=== PATIENT | female | born 1955 | race Caucasian/White ===

== ENCOUNTER 2022-05-27 23:10 | Emergency (ER) | payer MEDICAID ==
[~2022-05-27] VITALS: Ht 152.4 cm; Wt 69.7 kg
[2022-05-27 23:17] VITALS: BP 186/59
[2022-05-28] MEDS ORDERED: ONDANSETRON HCL 4MG/2ML INJ IV STA (05:11)
[2022-05-28] MEDS ORDERED: FAMOTIDINE 20MG/2ML VIAL IV STA (05:11)
[2022-05-28] MEDS ORDERED: SODIUM CHLORIDE 0.9% 1,000 ML IV ONE (05:15)
[2022-05-28 06:01] LABS: BASOPHILS % 1.3 % (0.0-2.0); EOSINOPHILS % 0.7 % (0.0-5.0); HEMOGLOBIN. 12.9 g/dL (12.0-16.0); LYMPHOCYTES % 31.7 % (20.0-50.0); MEAN CORPUSCULAR HEMOGLOBIN 30.9 pg (28.0-32.0); MEAN CORPUSCULAR VOLUME 91.1 fL (81.0-99.0); MEAN PLATELET VOLUME 7.2 fl (7.4-10.4); MONOCYTES % 6.3 % (2.0-8.0); PLATELET 310 x1000/uL (130-400); RED BLOOD CELL COUNT 4.17 mill/uL (4.2-5.4); RED CELL DISTRIBUTION WIDTH 13.3 % (11.6-14.6)
[2022-05-28 06:05] LABS: CHLORIDE 105 mEq/L (98-107)
[2022-05-28 06:13] LABS: CLARITY URINE CLEAR (CLEAR); COLOR URINE YELLOW (YELLOW); KETONES URINE NEGATIVE (NEGATIVE); LEUKOCYTE ESTERASE URINE 2+ (NEGATIVE); NITRITE URINE NEGATIVE (NEGATIVE); OCCULT BLOOD URINE NEGATIVE (NEGATIVE); PH URINE 6.5 (4.5-8.0); PROTEIN URINE NEGATIVE (NEGATIVE); SPECIFIC GRAVITY URINE 1.005 (1.005-1.030); UROBILINOGEN URINE 0.2 E.U./dL (0.2-1.0)
[2022-05-28 06:16] LABS: ETHANOL BLOOD < 10 mg/dL
[2022-05-28 07:02] LABS: *AMPHETAMINES SCREEN URINE NEGATIVE (NEGATIVE); *BARBITURATES SCREEN URINE NEGATIVE (NEGATIVE); *BENZODIAZEPINES SCREEN URINE NEGATIVE (NEGATIVE); *COCAINE SCREEN URINE NEGATIVE (NEGATIVE); CANNABINOID URINE SCREEN NEGATIVE (NEGATIVE); METHADONE URINE SCREEN NEGATIVE (NEGATIVE); OPIATES URINE SCREEN NEGATIVE (NEGATIVE); PHENCYCLIDINE URINE SCREEN NEGATIVE (NEGATIVE)
[2022-05-28] MEDS ORDERED: METRONIDAZOLE 500MG TABLET PO ONE (08:00)
[2022-05-28] MEDS ORDERED: LEVOFLOXACIN 500MG TABLET PO ONE (08:00)
[2022-05-28] MEDS ORDERED: CIPR-263 MT (09:54)
[2022-05-28] MEDS ORDERED: METR-167 MT (09:54)
[2022-05-28] MEDS ORDERED: ONDA4TAB11 PO (09:54)
[2022-05-28] MEDS ORDERED: OMEP20CA14 MT (09:54)
== END 2022-05-28 11:15 | disposition home or self-care (01) ==
LOC: ER 23:21
DX: K80.50 Calculus of bile duct without cholangitis or cholecystitis without obstruction (principal); R10.9 Unspecified abdominal pain; R11.2 Nausea with vomiting, unspecified; E11.9 Type 2 diabetes mellitus without complications; I10 Essential (primary) hypertension; Z79.899 Other long term (current) drug therapy; Z98.890 Other specified postprocedural states
CPT/HCPCS: 36415; 71045; 76705; 80053; 80305; 80320; 81003; 83690; 84484; 85025; 93005; 96361; 96374; 96375; 99285; J2405; J3490; J7030; Z7610; G0480

== ENCOUNTER 2023-11-09 09:20 | Emergency (ER) | payer SELFPAY ==
[~2023-11-09] VITALS: Ht 157.5 cm; Wt 70.0 kg
[~2023-11-09 09:20] MED LIST: CIPR-263 MT; METR-167 MT; OMEP20CA14 MT; ONDA4TAB11 PO
[2023-11-09 09:33] VITALS: O2SAT 96
[2023-11-09 10:07] LABS: BASOPHILS % 0.7 % (0.0-2.0); EOSINOPHILS % 5.1 % (0.0-5.0); HEMATOCRIT. 42.5 % (36.0-48.0); HEMOGLOBIN. 14.5 g/dL (12.0-16.0); LYMPHOCYTES % 22.1 % (20.0-50.0); MEAN CORPUSCULAR HEMOGLOBIN 30.6 pg (28.0-32.0); MEAN CORPUSCULAR HGB CONC 34.2 g/dL (31.0-37.0); MEAN CORPUSCULAR VOLUME 89.4 fL (81.0-99.0); MEAN PLATELET VOLUME 6.8 fl (7.4-10.4); MONOCYTES % 3.6 % (2.0-8.0); NEUTROPHILS % 68.5 % (40.0-76.0); PLATELET 302 x1000/uL (130-400); RED BLOOD CELL COUNT 4.76 mill/uL (4.2-5.4); RED CELL DISTRIBUTION WIDTH 13.7 % (11.6-14.6); WHITE BLOOD COUNT 7.2 x1000/uL (4.5-11.0)
[2023-11-09 10:20] LABS: CHLORIDE 105 mEq/L (98-107); POTASSIUM 3.9 mEq/L (3.5-5.1); SODIUM 137 mEq/L (136-145)
[2023-11-09 10:21] LABS: CALCIUM 9.5 mg/dL (8.7-10.4); CARBON DIOXIDE 23 mEq/L (21-32)
[2023-11-09 10:26] LABS: CREATININE 0.6 mg/dL (0.6-1.0); GLUCOSE 211 mg/dL (70-105); UREA NITROGEN BLOOD 9 mg/dL (9-23)
[2023-11-09 10:28] LABS: ALANINE AMINOTRANSFERASE 25 IU/L (10-49); ALBUMIN 4.5 g/dL (3.2-4.8); ASPARTATE AMINOTRANSFERASE 25 IU/L (<34); BILIRUBIN DIRECT 0.2 mg/dL (<=3.0); BILIRUBIN TOTAL 0.6 mg/dL (0.1-1.0)
[2023-11-09 10:29] LABS: PROTEIN TOTAL 8.1 g/dL (6.0-8.3)
[2023-11-09 10:40] LABS: TROPONIN I HIGH SENSITIVITY < 4 ng/L (3.0-34)
[2023-11-09 11:20] LABS: CLARITY URINE CLEAR (CLEAR); COLOR URINE YELLOW (YELLOW); GLUCOSE URINE 2+ (NEGATIVE); KETONES URINE NEGATIVE (NEGATIVE); LEUKOCYTE ESTERASE URINE NEGATIVE (NEGATIVE); NITRITE URINE NEGATIVE (NEGATIVE); OCCULT BLOOD URINE NEGATIVE (NEGATIVE); PH URINE 5.5 (4.5-8.0); PROTEIN URINE NEGATIVE (NEGATIVE); SPECIFIC GRAVITY URINE 1.013 (1.005-1.030); UROBILINOGEN URINE 0.2 E.U./dL (0.2-1.0)
[2023-11-09 11:43] LABS: SQUAMOUS EPITHELIAL CELL URINE 1+ /lpf (RARE/1+)
[2023-11-09 11:44] LABS: MUCUS URINE TRACE /lpf (< = 2+); RBC URINE NONE SEEN /hpf (0-2); WBC URINE 0-2 /hpf (0-2)
[2023-11-09 11:45] LABS: BACTERIA URINE TRACE
[2023-11-09] MEDS ORDERED: FAMOTIDINE 20MG/2ML VIAL IV NR (13:45)
[2023-11-09] MEDS: ONDANSETRON 4MG ODT PO ONE (13:46)
[2023-11-09] MEDS: ACETAMINOPHEN 325MG TABLET PO ONE (13:46)
[2023-11-09] MEDS: ONDANSETRON 4MG ODT PO NR (13:54)
[2023-11-09] MEDS: FAMOTIDINE 20MG TABLET PO SCH (13:54)
[2023-11-09] MEDS: MAGNESIUM/ALUMINUM HYDROXIDE/SIMETHICONE 30ML UDC PO NR (13:54)
[2023-11-09] MEDS ORDERED: FAMO-134 MT (16:01)
[2023-11-09 16:33] VITALS: BP 134/64; PULSE 63; RESP 18; TEMP 98
== END 2023-11-09 18:36 | disposition home or self-care (01) ==
LOC: ER 09:20
DX: K29.60 Other gastritis without bleeding (principal); E11.9 Type 2 diabetes mellitus without complications; I10 Essential (primary) hypertension; Z98.890 Other specified postprocedural states; Z90.49 Acquired absence of other specified parts of digestive tract
CPT/HCPCS: 99285; 74176; 71045; 80076; 80048; 81003; 85025; 84484; 36415; 93005; Q0162